=== PATIENT | female | born 2000 | race Hispanic/Latino ===

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

== ENCOUNTER 2019-01-26 18:48 | Emergency (ER) | payer MEDICAID ==
[2019-01-26 18:48] VITALS: BMI 31.9
== END 2019-01-26 19:13 | disposition left against medical advice (07) ==
LOC: ED 18:48
DX: Z02.89 Encounter for other administrative examinations (principal); O26.859 Spotting complicating pregnancy, unspecified trimester